=== PATIENT | male | born 1995 | race Caucasian/White ===

== ENCOUNTER 2016-11-06 03:18 | Emergency (ER) | payer OTHER ==
[~2016-11-06] VITALS: Ht 208.3 cm; Wt 106.8 kg
[2016-11-06] MEDS ORDERED: MORPHINE SULFATE 4 MG/ML, 1ML ONE (03:45)
[2016-11-06] MEDS ORDERED: MAALOX/HYOSCYAMINE/LIDOCAINE 45 ML BOTTLE ONE (03:45)
[2016-11-06] MEDS ORDERED: ONDANSETRON 2MG/ML, 2ML ONE (03:45)
[2016-11-06] MEDS ORDERED: FAMOTIDINE 20 MG/2 ML ONE (03:46)
[2016-11-06] MEDS ORDERED: FAMOTIDINE 20 MG/2 ML IVP ONE (04:00)
[2016-11-06] MEDS ORDERED: MAALOX/HYOSCYAMINE/LIDOCAINE 45 ML BOTTLE PO ONE (04:00)
[2016-11-06] MEDS ORDERED: ONDANSETRON 2MG/ML, 2ML IVPush ONE (04:00)
[2016-11-06] MEDS ORDERED: MORPHINE SULFATE 4 MG/ML, 1ML IVPush PRN (04:00)
[2016-11-06] MEDS ORDERED: SODIUM CHLORIDE 0.9% 1,000ML IVBOLUS ONE (04:00)
[2016-11-06 04:09] LABS: ASPARTATE AMINO TRANSFERASE 123 U/L (15-37); BLOOD UREA NITROGEN 21 mg/dL (7-18)
[2016-11-06 05:50] VITALS: BP 110/82
== END 2016-11-06 06:27 | disposition home or self-care (01) ==
LOC: ED 05:32
DX: K29.01 Acute gastritis with bleeding (principal)
CPT/HCPCS: 36415; 76700; 80053; 83690; 85025; 96361; 96374; 96375; 99285; J2405; J7030; S0028

== ENCOUNTER 2020-09-02 04:23 | Emergency (ER) | payer MEDICAID, OTHER ==
[~2020-09-02] VITALS: Ht 188 cm; Wt 131.0 kg
--- NOTE | 2020-09-02 04:31 | NUR ---
PT C/O BILAT FEET SWELLING X 1 DAY
[2020-09-02] MEDS ORDERED: SODIUM CHLORIDE 0.9% 1,000ML IVBOLUS ONE (05:00)
[2020-09-02] MEDS ORDERED: KETOROLAC 30 MG/1 ML IVPush ONE (05:00)
[2020-09-02] MEDS ORDERED: KETOROLAC 30 MG/1 ML ONE (05:05)
[2020-09-02] MEDS ORDERED: DIPHENHYDRAMINE 50 MG/ML, 1ML ONE (05:48)
[2020-09-02] MEDS ORDERED: CEFAZOLIN PMX 1GM/50ML 50 ML ONE (05:48)
--- NOTE | 2020-09-02 05:57 | NUR ---
PT IN NAD RESTING ON [facility]
[2020-09-02] MEDS ORDERED: DIPHENHYDRAMINE 50 MG/ML, 1ML IVPush ONE (06:00)
[2020-09-02] MEDS ORDERED: CEFAZOLIN PMX 1GM/50ML 50 ML IV ONE (06:00)
[2020-09-02 06:18] LABS: BASOPHILS % (AUTO) 1 % (0-1); EOSINOPHILS % (AUTO) 0 % (1-7); LYMPHOCYTES % (AUTO) 5 % (22-44); MEAN CORPUSCULAR HEMOGLOBIN 30.5 pg (27.5-34.5); MEAN CORPUSCULAR HGB CONC 35.1 g/dL (33.2-36.2); MONOCYTES % (AUTO) 10 % (2-9); NEUTROPHILS % (AUTO) 84 % (42-75); PLATELET COUNT 210 x10^3/uL (130-400); RED BLOOD COUNT 4.91 x10^6/uL (4.38-5.82); RED CELL DISTRIBUTION WIDTH 12.5 % (9.4-14.8)
[2020-09-02 06:29] LABS: ALANINE AMINOTRANSFERASE 32 U/L (12-78); ALBUMIN 3.7 g/dL (3.4-5.0); ANION GAP 7 mmol/L (5-15); CALCIUM 8.9 mg/dL (8.5-10.1); CHLORIDE 103 mmol/L (98-107); CREATININE 1.01 mg/dL (0.7-1.3)
[2020-09-02 06:31] LABS: ALKALINE PHOSPHATASE 81 U/L (45-117); BILIRUBIN,TOTAL 1.1 mg/dL (0.2-1.0); TOTAL PROTEIN 7.5 g/dL (6.4-8.2)
[2020-09-02 06:39] LABS: MD SCAN
--- NOTE | 2020-09-02 06:50 | NUR ---
assumed care of pt. report from Inna VELA pt here for redness and swelling to daphne WALKER. pt reports that he has a hx of meth abuse, has been clean for the last year but had a relapse 5 days ago. pt reports that he smokes it and shoots it. pt is currently resting on gurney in position of comfort using his cell phone. per report, pt had a rash to back and chest upon arrival, but is has resolved after medication administration. no difficulty breathing speaking or swallowing. pt reports that he is still having pain to his legs. IV fluids and ABX have been completed. no family at bedside. lab at bedside to draw
[2020-09-02 08:07] VITALS: BP 140/37
== END 2020-09-02 08:12 | disposition home or self-care (01) ==
LOC: ED 05:57
DX: L03.116 Cellulitis of left lower limb (principal); L03.115 Cellulitis of right lower limb; F15.10 Other stimulant abuse, uncomplicated; D72.829 Elevated white blood cell count, unspecified; F17.210 Nicotine dependence, cigarettes, uncomplicated
CPT/HCPCS: 36415; 80053; 83605; 84145; 85025; 87040; 93970; 96365; 96375; 99284; J0690; J1200; J1885; J7030

== ENCOUNTER 2020-10-04 08:20 | Emergency (ER) | payer MEDICAID ==
[~2020-10-04] VITALS: Ht 208.3 cm; Wt 130.6 kg
[2020-10-04] MEDS ORDERED: COLCHICINE 0.6 MG CAPSULE PO ONE (09:00)
[2020-10-04] MEDS ORDERED: KETOROLAC 30 MG/1 ML IM ONE (09:00)
--- NOTE | 2020-10-04 09:03 | NUR ---
REPORT TO DAILY VELA.
[2020-10-04] MEDS ORDERED: KETOROLAC 30 MG/1 ML ONE (09:05)
[2020-10-04] MEDS ORDERED: COLCHICINE 0.6 MG CAPSULE ONE (09:05)
--- NOTE | 2020-10-04 09:16 | NUR ---
RECEIVED REPORT FROM MIRIAN LOYA. PT RESTING ON [facility]. VSS. MEDICATED PER AUG.
[2020-10-04 10:07] VITALS: BP 121/82
== END 2020-10-04 10:13 | disposition home or self-care (01) ==
LOC: ED 09:44
DX: M79.672 Pain in left foot (principal); F17.200 Nicotine dependence, unspecified, uncomplicated
CPT/HCPCS: 73630; 96372; 99283; J1885

== ENCOUNTER 2020-12-03 11:52 | Emergency (ER) | payer MEDICAID ==
[~2020-12-03] VITALS: Ht 208.3 cm; Wt 134.7 kg
--- NOTE | 2020-12-03 12:14 | NUR ---
PT REPORTS "I'M SHITTING BLOOD". STATES, "I JUST NEED A GI REFERRAL. I WAS HERE BEFORE AND THEY GAVE ME A REFERRAL BUT I LOST IT."
--- NOTE | 2020-12-03 13:08 | NUR ---
ERP AT BS.
--- NOTE | 2020-12-03 13:10 | NUR ---
PT REFUSED RECTAL EXAM OR LAB WORK.
[2020-12-03 13:30] VITALS: BP 120/75
--- NOTE | 2020-12-03 13:40 | NUR ---
D/C INSTRUCTIONS & F/U APPT RV'WD WITH PT, HE VERBALIZES UNDERSTANDING. INSTRUCTED PT TO RETURN TO ED FOR ANY WORSENING OR CONCERNING SYMPTOMS. PT AMBULATED OUT OF ED WITHOUT DIFFICULTY.
== END 2020-12-03 13:41 | disposition home or self-care (01) ==
LOC: ED 12:50
DX: K92.1 Melena (principal)
CPT/HCPCS: 99281